=== PATIENT | female | born 1990 | race Caucasian/White ===

== ENCOUNTER → 2018-09-18 | Outpatient (REF) | payer BC ==
[~2018-09-18] MED LIST: BIRTH CONTROL; IBUP800T37 PO; LOR5 PO; OXYC-373 PO; [UNRECOGNIZED DRUG - CODE] PO
[2018-09-18 16:53] LABS: PLATELET COUNT, AUTOMATED 275 K/uL (150-450)
== END ==
LOC: ZZSENDIN 16:11
PROVIDERS: ATTEND Obstetrics & Gynecology
DX: N92.6 Irregular menstruation, unspecified (principal); L70.9 Acne, unspecified; R53.83 Other fatigue; L68.0 Hirsutism
CPT/HCPCS: 82040; 82247; 82310; 82374; 82435; 82565; 82627; 82947; 83002; 84075; 84132; 84155; 84295; 84450; 84460; 84520; 85025

== ENCOUNTER → 2018-09-18 | Outpatient (CLI) | payer BC, OTHER ==
--- NOTE | 2018-09-18 09:00 | RADIOLOGY IMAGING REPORT ---
FACILITY: [facility] PATIENT NAME: Tayler Fox : 1990 MR: [id number] V: [id number] EXAM DATE: ORDERING PHYSICIAN: SWEETIE REDDY TECHNOLOGIST: Location: [facility] [place] Patient: Tayler Fox : 1990 Visit/Account:[id number] Date of Sevice: 09/18/2018 GALLBLADDER HISTORY: Right upper quadrant pain, pain after eating COMPARISON: Bladder ultrasound November 05, 2013 FINDINGS: Gallbladder: Unremarkable; no stones or sludge. Liver: Liver is enlarged measuring 19.6 cm in length. There is increased echogenicity throughout foster er which can be seen with fatty infiltration or other infiltrative process Common duct: Normal, 3.1 mm diameter. Pancreas: Partially obscured by bowel, visualized aspects unremarkable. Right kidney: Right kidney appears unremarkable measuring 10.7 cm in length Upper abdominal aorta and IVC: Patent. Ascites: None visualized. IMPRESSION: Hepatomegaly with increased echogenicity throughout the liver which can be seen with fatty infiltrati on or other infiltrative process Report Dictated By: Lanny Oh MD at 09/18/2018 8:46 AM Report E-Signed By: Lanny Oh MD at 09/18/2018 8:55 AM WSN:[email or web address]
== END ==
LOC: US 07:03
PROVIDERS: ATTEND Obstetrics & Gynecology
DX: R16.0 Hepatomegaly, not elsewhere classified (principal)
CPT/HCPCS: 76705